=== PATIENT | male | born 1985 | race Two or more races ===

== ENCOUNTER 2016-06-25 10:19 | Emergency (ER) | payer OTHER ==
[2016-06-25 10:57] VITALS: BP 105/48; PULSE 58; TEMP 98.5; BMI 26.5
[2016-06-25] MEDS ORDERED: IBUPROFEN 600 MG TABLET (FP) PO ONE ×2 (11:22→11:36)
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
== END 2016-06-25 12:29 | disposition home or self-care (01) ==
LOC: JER 10:19 → JERFT 10:19
DX: S93.401A Sprain of unspecified ligament of right ankle, initial encounter (principal); W22.8XXA Striking against or struck by other objects, initial encounter; Y93.9 Activity, unspecified; Y92.410 Unspecified street and highway as the place of occurrence of the external cause; Y99.0 Civilian activity done for income or pay
CPT/HCPCS: 99281-25

== ENCOUNTER 2018-08-27 04:15 | Emergency (ER) | payer BC, OTHER ==
[2018-08-27 04:34] VITALS: BMI 28.7
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
[2018-08-27] MEDS ORDERED: LIDOCAINE HCL 1%, 10 MG/ML (20ML VIAL) ONE (05:33)
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
[2018-08-27 10:27] VITALS: PULSE 95
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
[2018-08-27 12:08] VITALS: BP 113/66; TEMP 98.6
--- NOTE | 2018-08-27 13:40 | EKG ---
Test Reason : Blood Pressure : / mmHG Vent. Rate : 101 BPM Atrial Rate : 101 BPM P-R Int : 164 ms QRS Dur : 086 ms QT Int : 340 ms P-R-T Axes : 068 055 016 degrees QTc Int : 440 ms SINUS TACHYCARDIA OTHERWISE NORMAL ECG WHEN COMPARED WITH ECG OF 16-SEP-2016 11:30, FUSION COMPLEXES ARE NO LONGER PRESENT VENT. RATE HAS INCREASED BY 48 BPM Confirmed by SUYAPA MOJICA MD ([id number]) on 08/27/2018 1:40:02 PM Referred By: Radha CH Confirmed By:SUYAPA MOJICA MD
== END 2018-08-27 12:14 | disposition home or self-care (01) ==
LOC: JER 04:15
PROC: 0HQ0XZZ Repair Scalp Skin, External Approach (ICD-10-PCS; principal; 2018-08-27)
PROC: 0HQ1XZZ Repair Face Skin, External Approach (ICD-10-PCS; 2018-08-27)
DX: S01.81XA Laceration without foreign body of other part of head, initial encounter (principal); X99.8XXA Assault by other sharp object, initial encounter; Y93.89 Activity, other specified; Y92.89 Other specified places as the place of occurrence of the external cause; Y99.8 Other external cause status; Y07.6 Multiple perpetrators of maltreatment and neglect
CPT/HCPCS: 70450-TC; 71045-TC-FY; 72125-TC; 93005; 93010; 99285-25

== ENCOUNTER 2023-02-25 08:32 | Emergency (ER) | payer OTHER ==
[2023-02-25 09:14] VITALS: BP 108/68; PULSE 65; RESP 20; TEMP 98.7; BMI 22.9
== END 2023-02-25 09:49 | disposition home or self-care (01) ==
LOC: JERFT 08:32
DX: M54.2 Cervicalgia (principal); M54.50 Low back pain, unspecified; M79.10 Myalgia, unspecified site; V49.40XA Driver injured in collision with unspecified motor vehicles in traffic accident, initial encounter; Y93.I9 Activity, other involving external motion
CPT/HCPCS: 99283-25

== ENCOUNTER 2023-10-13 19:53 | Emergency (ER) | payer OTHER ==
[2023-10-13 20:11] VITALS: BP 105/69; PULSE 72; RESP 16; TEMP 98.8; BMI 25.8
== END 2023-10-13 22:39 | disposition home or self-care (01) ==
LOC: JERFT 19:53
DX: S93.601A Unspecified sprain of right foot, initial encounter (principal); X50.1XXA Overexertion from prolonged static or awkward postures, initial encounter
CPT/HCPCS: 73610-TC-RT-FY; 73630-TC-RT-FY; 99283-25

== ENCOUNTER 2024-09-13 14:00 | Emergency (ER) | payer OTHER ==
[2024-09-13 14:08] VITALS: BP 113/60; PULSE 93; RESP 20; TEMP 98.4; BMI 28.1
[2024-09-13 16:14] LABS: ARTERIAL BLD GAS O2 SATURATION 88.4 % (95-98); ARTERIAL BLOOD GAS BASE EXCESS -2.5 mmol/L (-2-2); ARTERIAL BLOOD GAS PO2 55.9 mmHg (80-100); ARTERIAL BLOOD GAS pH 7.369 (7.350-7.450); O2 CONTENT 1.92 % vol
== END 2024-09-13 16:36 | disposition home or self-care (01) ==
LOC: JERFT 14:00
DX: R06.02 Shortness of breath (principal); R07.0 Pain in throat; R05.9 Cough, unspecified; R09.02 Hypoxemia; T59.811A Toxic effect of smoke, accidental (unintentional), initial encounter; X01.1XXA Exposure to smoke in uncontrolled fire, not in building or structure, initial encounter; Y99.0 Civilian activity done for income or pay
CPT/HCPCS: 36600; 82375; 82803; 99283-25